=== PATIENT | female | born 1975 | race African-American/Black ===

== ENCOUNTER 2021-01-07 08:42 | Outpatient (CLI) | payer BC ==
[~2021-01-07 08:42] MED LIST: Fentanyl 100 MCG/2 ML VIAL ONE; Heparin 10,000 UNITS/ 10 ML VIAL ONE; Midazolam HCl 2 mg/2 ml Vial ONE; Nitroglycerin 50 MG/250 ML BOT 250 ML ONE
== END 2021-01-07 08:43 | disposition home or self-care (01) ==
LOC: CSHCT 08:42
PROVIDERS: ATTEND Urology
DX: N28.1 Cyst of kidney, acquired (principal); R35.0 Frequency of micturition; N20.0 Calculus of kidney
CPT/HCPCS: 74178; J1644; J2250; J3010